=== PATIENT | male | born 1955 | race Caucasian/White ===

== ENCOUNTER 2025-09-16 10:54 | Outpatient (AMB) | payer OTHER, SELFPAY ==
--- NOTE | 2025-09-16 10:56 | A.PHYSOV_ITS ---
Vital Signs 09/16/25 10:58 Height 5 ft 10 in Weight 230 lb BMI 33.0 Intake Visit Reasons: eval for back injection Intake Note: Patient is a 69 year old male in office today for evaluation on left hip injection. [employer] Required: No Allergies No Known Allergies Allergy (Verified 09/16/25 10:57) HPI Comments Details: History of Present Illness The patient is a 69 year old male presenting for management of his left hip pain. He reports that it has been about a year since his last injection for this issue. Patient did undergo left hip intra-articular injection on 08/16/2024 with 90% reduction of his pain for over a year. The patient's symptoms were recently aggravated by a steel[place] fishing trip, which involved walking on rocks with cleats and climbing inclines. The patient reports going to the gym, where he can use the elliptical and stationary bike without issue, but finds it difficult to use the treadmill. He denies a history of diabetes. Patient is requesting repeat left hip intra-articular injection. He would like to consider medication for over the holiday just in case his symptoms are worse. Pain Description - Location: Left hip. - Exacerbating Factors: A recent fishing trip that involved walking on rocks and climbing inclines exacerbated his pain. - Activities Interfered With: The patient reports difficulty using a treadmill. [facility] Surgical History History of tonsillectomy Social History Alcohol intake: current Alcohol intake frequency: holidays/special occasions only Patient Tobacco Use Status: Former Tobacco user Current occupational status: retired Review of Systems Narrative Review of Systems - Musculoskeletal: Reports left hip pain. - Endocrine: Denies diabetes. Physical Exam Exam Exam: Lumbar Spine: Examination of his lumbar spine, there is no visible swelling or deformity. He is tender to lower lumbar facets. Full range of motion of his lumbar spine. He does have an increase in pain with facet loading. Special Tests: Lhermittes sign was negative Heel Toe walk is normal Left straight leg raise: Negative Right straight leg raise: Negative Special tests Katie test is negative Ganslen's test is negative SI Joint compression test negative Sen test negative Piriformis stretch is negative Lower Extremities: Limited range of motion of his left hip and external rotation and abduction. His pain is reproducible with hip motion. No calf pain or edema. Neuro: Sensation: Intact to lower extremities bilaterally Strength L2 (Psoas): 5/5 on the left and 5/5 on the right. L3 (Quads): 5/5 on the left and 5/5 on the right. L4 (Ant tibialis): 5/5 on the left and 5/5 on the right. L5 (EHL) 5/5 on the left and 5/5 on the right. S1 (Gastroc): 5/5 on the left and 5/5 on the right. DTR L4: (Patellar) Left 2 Right 2 S1: (Achilles) Left 2 Right 2 Babinski Downgoing No pathologic clonus. No involuntary movement. Vital Signs: BMI result Body Mass Index 33.0 Assessment & Plan Assessment & Plan (1) Osteoarthritis of left hip: Code(s): M16.12 - Unilateral primary osteoarthritis, left hip Category: Medical Qualifiers: Osteoarthritis type: primary Qualified Code(s): M16.12 - Unilateral primary osteoarthritis, left hip Plan Pain Management - Analgesia: The patient is requesting a left hip joint injection for pain, which he has received in the past. - Activities of Daily Living: The patient has difficulty using a treadmill but can use an elliptical and stationary bike without any problems. Plan Patient was informed and verbally consented to the use of an ambient scribe for clinic note documentation during this visit. 1. Left Hip Pain An order will be placed for a left hip joint injection to be performed by Dr. Dia under x-ray guidance. The office will contact the patient to schedule the procedure once authorization is received, which is expected to take a couple of weeks. A follow-up appointment will be scheduled for three weeks post-procedure, which the patient can cancel if he is feeling significantly better. A prescription for a prednisone 50 mg taper will be sent as a contingency to manage pain over the holiday if the injection is delayed. Discussion Notes I discussed the plan to proceed with a left hip joint injection. I explained that I will place the order for the shot, which will be performed by Dr. Jorge under x-ray guidance, and that it usually takes a couple of weeks to schedule. A three-week follow-up appointment will be made after the injection, and I advised the patient that he can call to cancel if his symptoms resolve. As a backup plan for pain control over the holidays, I will send a prescription for a prednisone 50 mg taper, which he can take for 3-5 days if the injection is delayed. Patient will not take anti-inflammatory medication with the prednisone. The patient confirmed he is not diabetic. I clarified that the prior consent form for a bursa injection is void as a hip joint injection is what is required and must be ordered. Patient Instructions - An order will be placed for a left hip injection, which will be done under X- ray guidance. - Our office will contact you to schedule the procedure once it is approved, which may take about two weeks. - You will be given a follow-up appointment for 3 weeks after your injection. - If you feel significantly better after the shot, you may call our office to cancel the follow-up visit. - A prescription for Prednisone has been sent to your pharmacy. - If you are unable to get the hip injection before the , you may start taking the Prednisone for 3-4 days to help with the pain. - Continue your current activities as tolerated, including using the elliptical and stationary bike at the gym. Medications: New prednisone 50 mg PO DAILY 5 tabs 0RF M16.12 - Unilateral primary osteoarthritis, left hip Coding Level of Care Code Est Pt Level 4 (88499) Diagnoses Primary osteoarthritis of left hip M16.12 Osteoarthritis type: primary
[2025-09-16 10:58] VITALS: BMI 33.0
== END 2025-09-16 11:31 | disposition home or self-care (01) ==
LOC: HO.HPHYS 10:54
PROVIDERS: PCP Pediatrics; Visit Provider Physician Assistant
DX: M16.12 Unilateral primary osteoarthritis, left hip (principal)
CPT/HCPCS: 99214